=== PATIENT | female | born 1985 | race African-American/Black ===

== ENCOUNTER 2017-12-20 09:15 | Emergency (ER) | payer OTHER ==
[~2017-12-20] VITALS: Ht 160 cm; Wt 70.3 kg
[~2017-12-20 09:15] MED LIST: BACTRIM DS TAB1 EACH PO; IBUPROFEN 600600 M1 PO; NOHOMEMEDICATIONS; PROAIR HFA8.5 GM IH; TESSALON200 MG PO
[2017-12-20 09:46] LABS: URINE BILIRUBIN NEGATIVE (Negative); URINE BLOOD NEGATIVE (Negative); URINE CLARITY CLEAR; URINE COLOR YELLOW; URINE GLUCOSE-RANDOM* NEGATIVE (Negative); URINE KETONES NEGATIVE (Negative); URINE LEUKOCYTES NEGATIVE (Negative); URINE NITRITE NEGATIVE (Negative); URINE PROTEIN (DIPSTICK) NEGATIVE (Negative); URINE SPECIFIC GRAVITY 1.025 (1.005-1.035)
[2017-12-20 10:21] LABS: ABSOLUTE NEUTROPHILS 7.8 thou/uL (1.4-8.2); BASOPHILS 0.4 % (0.0-2.0); EOSINOPHILS 0.4 % (0.0-3.0); HEMATOCRIT 38.1 % (37.0-47.0); HEMOGLOBIN 12.3 gm/dL (12.0-15.0); LYMPHOCYTES 22.8 % (24.0-44.0); MCH 23.7 pg (26.0-34.0); MCHC 32.3 g/dL (28.0-37.0); MCV 73.3 fL (80.0-100.0); MONOCYTES 5.8 % (1.0-8.0); PLATELET COUNT 222 thou/uL (150-400); POLYS 70.6 % (36.0-66.0); RDW 15.1 % (10.5-14.5); WBC 11.1 thou/uL (4.0-11.0)
[2017-12-20 10:39] LABS: CALCIUM 8.9 mg/dL (8.5-10.1); CREATININE 0.9 mg/dL (0.6-1.0); POTASSIUM 3.6 mmol/L (3.5-5.1)
[2017-12-20] MEDS ORDERED: PRENATAL PO (11:17)
== END 2017-12-20 11:18 | disposition home or self-care (01) ==
LOC: ER 09:15
PROVIDERS: Nurse Practitioner Family
DX: O99.511 Diseases of the respiratory system complicating pregnancy, first trimester (principal); J45.909 Unspecified asthma, uncomplicated; Z3A.00 Weeks of gestation of pregnancy not specified

== ENCOUNTER 2018-04-24 19:56 | Emergency (ER) | payer OTHER ==
[~2018-04-24] VITALS: Ht 162.6 cm; Wt 101.2 kg
[~2018-04-24 19:56] MED LIST changes: +PRENATAL PO
[2018-04-24 20:24] VITALS: BP 133/80
[2018-04-24] MEDS ORDERED: ENOXAPARIN40 MG/0.1 SUBQ (20:27)
[2018-04-24] MEDS ORDERED: LOTRISONE CREAM15 GM TOP (21:10)
== END 2018-04-24 21:30 | disposition home or self-care (01) ==
LOC: ER 19:56
DX: O26.892 Other specified pregnancy related conditions, second trimester (principal); O99.512 Diseases of the respiratory system complicating pregnancy, second trimester; Z3A.22 22 weeks gestation of pregnancy; R21 Rash and other nonspecific skin eruption; J45.909 Unspecified asthma, uncomplicated